=== PATIENT | female | born 1965 | race Caucasian/White ===

== ENCOUNTER 2016-10-14 15:20 | Emergency (ER) | payer OTHER ==
[~2016-10-14] VITALS: Ht 162.6 cm; Wt 54.4 kg
[2016-10-14 15:31] LABS: URINE BILIRUBIN - DIPSTICK NEGATIVE (NEG); URINE BLOOD NEGATIVE (NEG)
--- NOTE | 2016-10-14 15:33 | Emergency Room Report ---
History of Present Illness Time Seen by MD Bautista Presenting Problem in Triage Pt arrived:Walked Presenting Problem:right side abd pain x 30 mins no injury Onset of symptoms date/time:/ or onset unknown for:MEDICAL HX UNKNOWN Treatment Prior to Arrival: [facility] Provided by:SELF Sepsis Risk Assessment: Temp: 98.3 B/P: 150/74 MAP: 99 Pulse: 77 Resp: 18 Recent fever? N Clinical Suspician of Infection? N Mental Status: 1 - Regular (Normal Baseline) Sepsis Risk:Low Sepsis Risk Have you (or family members/close friends) recently traveled outside the [place]? N If Yes, where/when: Have you had exposure to infectious disease within the past month? TB? Other? Specify: Comment Complains of RIGHT lower quadrant pain that began 30 minutes prior to arrival. A little bit of RIGHT lower back pain as well. No diarrhea, constipation, urinary symptoms, fever, vomiting. One previous episode of similar pain that went away on its own. ALLERGIES Coded Allergies: No Known Allergies (10/14/16) Home Medications Reported Medications No Known Home Medications History Medical History General Angina: No [place]: No Hypertension? No Hyperlipidemia? No CHF? No COPD? No Asthma? No Hernia? Yes CVA? No Seizures? No Diabetes? No UTI? No Stones? No GB Disease: No Hepatitis? No Cataracts? No Glaucoma? No TB? No Cancer? 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 Psychiatric/Neurological denies numbness, denies weakness Physical Exam Vital Signs Vital Signs Date Time Temp Pulse Resp B/P Pulse O2 O2 Flow FiO2 Ox Delivery Rate 10/14 1546 20 10/14 1526 98.3 77 18 150/74 98 General Appearance normal appearance, WD/WN Eye Exam - bilateral eye normal exam, bilateral eye PERRL, bilateral eye EOMI Ear, Nose, Throat hearing grossly normal, normal ENT inspection Neck normal inspection, non-tender, supple, full range of motion Respiratory Status Yes: trachea midline, chest symmetrical, non tender chest. No: respiratory distress. Lung Sounds bilateral: normal breath sounds, lungs clear. Cardiovascular normal exam, regular rate/rhythm, no peripheral edema, no gallop, no JVD, no murmur, no rub, normal peripheral pulses Peripheral Pulses Pulses normal Yes Gastrointestinal normal bowel sounds, soft, no organomegaly, no guarding, no rebound, tenderness (RIGHT lower quadrant), no RIGHT upper quadrant tenderness, no subcostal tenderness, negative Pritchard sign Back normal inspection, no CVA tenderness, no vertebral tenderness Extremities non-tender, normal range of motion, normal inspection Neurologic alert, normal exam, oriented x 3 Mental status normal mood/affect Skin intact, normal color, warm/dry Medical Decision Making LABS/Meds/Orders Pt receiving controlled substance in ED? No Results/Orders Laboratory Tests 10/14/16 1530: Sodium 141, Potassium 3.7, Chloride 105, Carbon Dioxide 30, BUN 16, Creatinine 0.8, Estimated Creat Clear 71, Estimated GFR (MDRD) 76, Glucose 99, Calcium 9.0, Total Bilirubin 1.4 H, AST 14 L, ALT 35, Alkaline Phosphatase 67, Total Protein 7.2, Albumin 4.1, Globulin 3.1, Albumin/Globulin Ratio 1.3, Amylase 71, Lipase 222, WBC 5.9, RBC 4.36, Hgb 14.6, Hct 41.1, MCV 94.2, RDW 12.6, Plt Count 224, MPV 7.0 L, Gran % 66.4, Gran # 3.9, Lymphocytes % 24.0, Monocytes % 7.9, Eosinophils % 1.4, Basophils % 0.4, Lymphocytes # 1.4, Monocytes # 0.5, Eosinophils # 0.1, Basophils # 0.0, PUBS MCHC 35.6 H, MCH 33.5 H 10/14/16 1520: Urine Color YELLOW, Urine Appearance CLEAR, Urine pH 5.5, Ur Specific Flushing 1.025, Urine Protein NEGATIVE, Urine Ketones NEGATIVE, Urine Blood NEGATIVE, Urine Nitrate NEGATIVE, Urine Bilirubin NEGATIVE, Urine Urobilinogen 0.2, Ur Leukocyte Esterase NEGATIVE, Urine RBC 5-10, Urine WBC OCC, Ur Squamous Epith Cells OCC, Urine Bacteria 1+, Urine Mucus 1+, Urine Glucose NEGATIVE Current Medication Orders Sig/Carlos Start time Last Medication Dose Route Stop Time Status Admin Iopamidol 75 ML ONCE ONE 10/14 1630 DC 10/14 IV 10/14 1631 1617 Sodium Chloride 10 ML ONCE ONE 10/14 1630 DC 10/14 IV 10/14 1631 1617 Ketorolac 30 MG ONCE ONE 10/14 1545 DC 10/14 Tromethamine IV 10/14 1546 1546 Sodium Chloride 10 ML PRN PRN 10/14 1545 AC IV 10/15 1531 Ketorolac 0 .STK-MED ONE 10/14 1543 DC Tromethamine .ROUTE Orders Procedure Date/time Status DIET-NOTHING BY MOUTH 10/[address] ABD/PELVIS REQ 10/14 1541 Complete IV SALINE LOCK 10/14 1531 Active LIPASE 10/14 1531 Complete CBC WITH AUTO DIFF 10/14 1531 Complete CHEM 12 PROFILE 10/14 1531 Complete AMYLASE 10/14 1531 Complete URINALYSIS/COMPLETE 10/14 1527 Complete Progress - 4:45 PM: The patient is feeling better. Workup is unremarkable. Advised of CT findings including renal cyst and possible lucent area of the liver that she should follow up with her primary care physician about. I also advised her that it is difficult to exclude very early appendicitis and if she worsens over the next 24 hours with increasing pain or fever or vomiting to return to the emergency department. Departure Departure Disposition DC Home or Self Care(routine) Clinical Impression Primary Impression: Right lower quadrant abdominal pain Condition STABLE Referrals RODRIGO GABRIEL (Family) Patient Instructions DI for Abdominal Pain-Adult Additional Instructions Ibuprofen for pain. Additional instructions for ABDOMINAL PAIN: See your physician as soon as possible for further evaluation. Return immediately if worsening abdominal pain, vomiting, shortness of breath, fever, vomiting of blood or abdominal distention. Prescriptions Current Visit Scripts No Known Home Medications ED Critical Care Critical Care No at [id number]
--- OUTSIDE RECORDS SUMMARY | 2016-10-14 15:37 | External Medical Summary Rpt ---
Demographics Preferred Language Latvian Marital Status Unknown Adventist Affiliation Unknown Race Unknown Ethnic Group Unknown Author Author , Organization [employer] Address Unknown Phone Unavailable Purpose Continuity of Care Document - through 2016 Immunization No patient found.
--- OUTSIDE RECORDS SUMMARY | 2016-10-14 15:37 | External Medical Summary Rpt ---
Demographics Preferred Language Yakut Marital Status Unknown Rastafari Affiliation Unknown Race Unknown Ethnic Group Unknown Author Author , Organization [employer] Address Unknown Phone Unavailable Purpose Continuity of Care Document - through 2016 Immunization No patient found.
--- OUTSIDE RECORDS SUMMARY | 2016-10-14 15:37 | External Medical Summary Rpt ---
Author Author [employer] Organization [employer] Address Unknown Phone Unavailable Purpose Continuity of Care Document - through 2016
--- OUTSIDE RECORDS SUMMARY | 2016-10-14 15:37 | External Medical Summary Rpt ---
Author Author [employer], [employer] Organization [employer] Address Unknown Phone Unavailable
[2016-10-14 15:38] LABS: HEMOGLOBIN 14.6 g/dL (12.2-16.2); LYMPH # 1.4 K/mm3 (0.7-4.5)
[2016-10-14 15:41] LABS: URINE SQUAMOUS CELLS OCC #/hpf (0-5)
--- NOTE | 2016-10-14 16:29 | RADIOLOGY REPORT PS360 ---
CT ABD PELVIS W/ CONTRAST CLINICAL INDICATION: RLQ ABD PAIN ORDERING PHYSICIAN: Chris Mallory MD PATIENT AGE: 50 years COMPARISON: None TECHNIQUE: Axial images obtained with sagittal and coronal reformats. PROCEDURE: Oral Contrast: None IV Contrast: 75 mL is Isovue-[id number] FINDINGS: Lung bases are clear. There is some nonspecific subtle decreased attenuation in the posterior segment of the right hepatic lobe. Gallbladder wall is mildly thickened. The spleen and adrenal glands and pancreas are unremarkable. No obstructing renal or ureteral calculus. There are cortical isodensity is of the left kidney the largest anteriorly measuring 3 cm consistent with a renal cyst. No hydronephrosis. There is mild distention of the stomach with secretions and/or ingested material. No intestinal obstruction or free air is evident. No evidence of appendicitis or diverticulitis. No pelvic mass or abnormal pelvic fluid collection evident. There is increased soft tissue density just deep to the anterior abdominal wall at the umbilical region and could be related to prior surgery. Please correlate clinically No acute bony anomalies. IMPRESSION: 1. No evidence of appendicitis or obstructing ureteral calculus. 2. Nonspecific subtle decreased attenuation in the posterior segment of the right hepatic lobe. Etiology is indeterminate and may related to flow phenomenon. Outpatient ultrasound may be of further value to exclude an underlying lesion if clinically warranted.
[2016-10-14 16:57] VITALS: BP 144/75
== END 2016-10-14 16:57 | disposition home or self-care (01) ==
LOC: ER 15:20
PROVIDERS: Emergency Medicine
DX: R10.31 Right lower quadrant pain (principal)
CPT/HCPCS: Q9967